=== PATIENT | male | born 1990 | race Caucasian/White ===

== ENCOUNTER 2020-05-27 05:43 | Emergency (ER) | payer SELFPAY ==
[2020-05-27 06:10] VITALS: BP 155/94
[2020-05-27] MEDS ORDERED: KETOROLAC TROMETHAMINE 60 MG/2 ML SDV IM ONE (06:56)
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
--- NOTE | 2020-05-27 07:42 | RADIOLOGY REPORT (SQ) ---
EXAM: HIP LEFT AP/LATERAL CLINICAL DATA: 29 years Male severe left hip pain after heavy lifting TECHNICAL DATA: 2 x-ray views of the pelvis and left hip were performed on 05/27/2020 at 6:40 AM. COMPARISONS: None FINDINGS: There is no evidence of fracture or dislocation. There is no significant arthritis or degenerative change. No focal lytic or sclerotic bone lesions are seen. Bone mineralization is normal. No focal soft tissue abnormalities are identified. IMPRESSION: No evidence of acute osseous injury involving the left hip.
[2020-05-27] MEDS ORDERED: ACETAMINOPHEN 325 MG TABLET PO ONE (07:46)
== END 2020-05-27 08:00 | disposition left against medical advice (07) ==
LOC: ER 05:43
DX: F11.23 Opioid dependence with withdrawal (principal); M25.552 Pain in left hip; F17.210 Nicotine dependence, cigarettes, uncomplicated
CPT/HCPCS: 99283